=== PATIENT | female | born 1995 | race Caucasian/White ===

== ENCOUNTER 2017-10-18 08:11 | Emergency (ER) | payer BC ==
[~2017-10-18] VITALS: Ht 170.2 cm; Wt 59.5 kg
[2017-10-18 08:20] VITALS: TEMP 36.7; Ht 170.2 cm; Wt 59.5 kg
[2017-10-18] MEDS ORDERED: CIPROFLOXACIN 500 MG TAB PO STA (09:07)
[2017-10-18] MEDS ORDERED: CIPR-255 PO (09:11)
[2017-10-18] MEDS ORDERED: CEPH500C PO (09:11)
[2017-10-18] MEDS ORDERED: CEPHALEXIN MONOHYDRATE 250 MG CAP PO ONE (09:15)
[2017-10-18 09:18] VITALS: BP 122/73; PULSE 68; O2SAT 97
--- NOTE | 2017-10-18 09:51 | EMERGENCY ROOM VISIT NOTE ---
History First contact with patient: 08:27 Chief Complaint: SYNCOPE Stated Complaint: PASSED OUT/VOMIT-BAD RIGHT FOOT PAIN Nursing Triage Summary: pt has a blister on inner right foot arch. states she was in the shower this am soaking it and passed out. her mother was there and caught her. denies any sx at this time History of Present Illness The patient is a 22 year old female who presents to the Emergency Room this morning with her mother with complaints of a syncopal episode in the shower this morning. The patient reports that she is currently treating blisters on both feet. She reports redness and clear drainage from the blister on the right foot. The patient was standing in the shower this morning when she started to become lightheaded. She called her mother, who went to the shower and was able to catch the patient as she was falling. There were no injuries from the fall. The patient reports that she had not eaten or drank anything this morning. She has noticed slightly worsening redness of the foot. The patient denies any preceding chest pain, shortness of breath or headache. The patient denies any cardiopulmonary or other significant neurologic history. She rates her discomfort an 8 out of 10. Review of Systems 10 system review was performed and was negative except for pertinent positives and negatives as indicated in history of present illness Past Medical/Surgical History Medical Problems: (1) Pleural effusion (2) Pneumonia Surgical Problems: (1) Status post thoracostomy tube replacement Family History No significant family history Social History Smoking Status: Never Smoker Alcohol Use: occasionally Marital Status: single Housing Status: lives with roommate Occupation Status: [employer] student Current/Historical Medications Scheduled Cephalexin Monohydrate (Keflex), 500 MG PO QID Ciprofloxacin Hcl (Cipro), 500 MG PO BID Physical Exam Vital Signs Date Time Temp Pulse Resp B/P (MAP) Pulse Ox O2 Delivery O2 Flow Rate FiO2 10/18/17 09:18 68 17 122/73 97 Room Air 10/18/17 08:20 36.7 71 18 123/67 99 Room Air Physical Exam CONSTITUTIONAL: Healthy and well nourished. Alert and oriented X 3 with positive affect. GCS 15. HEENT: Normocephalic, atraumatic. Pupils equal, round and reactive. OROPHARYNX: Mucous membranes are moist. NECK: Full active range of motion without discomfort. RESPIRATORY: Clear to auscultation bilaterally with no wheezing, crackles, rhonchi or stridor. CARDIOVASCULAR: Regular rate and rhythm with no murmurs, rubs or gallops. GASTROINTESTINAL: Bowel sounds present in all quadrants. Soft and nontender to palpation. MUSCULOSKELETAL: Examination shows a blister of the right foot arch with notable surrounding erythema. It is tender to palpation. No purulent drainage or underlying fluctuance noted. She has multiple calluses of both feet, and small blister on the left foot. INTEGUMENTARY: No rash or other significant dermatologic conditions noted. NEUROLOGIC: No focal neurologic deficits noted. Medical Decision & Procedures Medications Administered Medications (Trade) Dose Ordered Sig/Amos Route Start Time Stop Time Status Last Admin Dose Admin Cephalexin Monohydrate (Keflex Cap) 500 mg NOW ONCE PO 10/18/17 09:15 10/18/17 09:16 DC 10/18/17 09:31 500 MG Ciprofloxacin (Cipro Tab) 500 mg NOW STAT PO 10/18/17 09:07 10/18/17 09:09 DC 10/18/17 09:31 500 MG ED Course Patient history and physical exam were performed. Nurse's notes were reviewed. Vital signs were reviewed and were normal. The patient reports feeling fine at this moment except for pain in the foot. Examination is consistent with a right foot cellulitis. The patient reports that she has a final in an hour. With shared medical decision making, the case was discussed with both the patient and mother. They elected to defer a more extensive workup because of time constraints. I did do a BSG which was normal. The patient's wounds were cleansed and covered with a bacitracin dressing. Crutches were also dispensed. The patient will be provided prescriptions for Cipro and Keflex. She was encouraged to avoid running for now until her wounds healed. The patient will be back next week for summer courses. The patient was provided contact information for [facility] should she need further follow-up and management. She was instructed to seek further emergent reevaluation for any progressively worsening redness, swelling, pain, red streaks or fever. Both the patient and mother were happy with plan of care, voiced understanding of all discharge instructions, and the patient rated her discomfort a 3 out of 10 at the time of discharge. Medical Decision I suspect the patient suffered syncope secondary to pain when water hit her open wound on the right foot. The patient is not hypoglycemic or hypotensive. She does not show any evidence for significant infection. Few shared medical decision making, the patient wanted to get back to campus in order to take a final. I do not feel that further extensive workup at this time is warranted, however the patient was instructed to seek further reevaluation for any further concerns. Medication Reconcilliation Current Medication List: was personally reviewed by me Blood Pressure Screening Patient's blood pressure: Normal blood pressure Impression Primary Impression: Cellulitis of right foot Additional Impression: Bilateral foot blisters Departure Information Dispostion Home / Self-Care Prescriptions Cephalexin Monohydrate (Keflex) 500 Mg Cap 500 MG PO QID for 7 Days, #28 CAP Prov: Chandrakant Cardozo PA 10/18/17 Ciprofloxacin Hcl (CIPRO) 500 Mg Tab 500 MG PO BID for 7 Days, #14 TAB Prov: Chandrakant Cardozo PA 10/18/17 Referrals Gerson Branch M.D. Forms HOME CARE DOCUMENTATION FORM, IMPORTANT VISIT INFORMATION Patient Instructions My [facility] Additional Instructions Keep wounds clean and covered with an antibiotic ointment and dressing. Use crutches to minimize weight on right foot. Ibuprofen 800 mg and/or Tylenol 1000 mg every 8 hours. You may also alternate these medications for more effective pain relief: Ibuprofen --4 HRS--> Tylenol --4 HRS--> ibuprofen --4 HRS--> Tylenol .... Take Keflex and Cipro antibiotics as prescribed. Seek emergent reevaluation with any progressively worsening infection, pain or developing fever. You may follow-up with a certified medical technician assistant or orthopedics ([facility] ) as needed for further management. Problem Qualifiers
== END 2017-10-18 09:49 | disposition home or self-care (01) ==
LOC: C.EDB 08:13 → C.EDA 09:49
DX: L03.115 Cellulitis of right lower limb (principal); S90.822A Blister (nonthermal), left foot, initial encounter; X58.XXXA Exposure to other specified factors, initial encounter; R55 Syncope and collapse